=== PATIENT | female | born 1930 | race Caucasian/White ===

== ENCOUNTER 2018-01-04 08:47 | Outpatient (CLI) | payer MEDICARE ==
--- NOTE | 2018-01-04 11:53 | CT ---
CT ABDOMEN WITH AND WITHOUT IV CONTRAST CT PELVIS WITH AND WITHOUT IV COTNRAST: DATE: 01/04/2018. HISTORY: Right-sided abdominal pain and hematuria. History of bladder cancer as well as ovarian cancer. Hist ory of prior colon resection and hysterectomy. COMPARISON: 11/10/2008. FINDINGS: There is a mild pectus excavatum deformity. Mild left convex rotoscoliosis of the lumbar spine is no kirsty. There is bilateral hip osteoarthritis much greater on the right. Patchy parenchymal density is seen within the lateral aspect of the left lung base probably within th e anterior aspect of the left lower lobe. This could be related to atelectasis, although a focal are a of pneumonia is not excluded. There is mild herniation of fat at the posterior aspect of the left lung base. Small calcifications are seen in the gallbladder lumen consistent with gallbladder calculi. There is an approximately 1 cm fluid density lesion within the mid portion of the left kidney compati ble with a cyst. No additional renal lesion is seen. No renal or ureteral calculi are seen bilatera lly. There is no hydronephrosis. No enhancing renal mass is identified. The liver, spleen, pancreas, and bilateral adrenal glands demonstrate a normal CT appearance. The ur inary bladder is decompressed and not well evaluated, but on delayed images with contrast in the urin dada bladder, the urinary bladder demonstrates a grossly normal CT appearance. There are postsurgical changes related to partial colectomy with postsurgical changes related to the anastomosis within the mid pelvis. No enlarged lymph nodes are seen by CT size criteria. There is a tiny subcentimeter nodule seen post erior to the right hepatic lobe near the level of the hemidiaphragm which is nonspecific and may repr esent a tiny nonspecific lymph node. No free fluid or fluid collection is seen in the abdomen or pelvis. The uterus is not visualized related to prior hysterectomy. Vascular calcification is seen in the abdominal aorta and iliac arteries. IMPRESSION: 1. Patchy density in the anterior aspect left lower lobe which could be related to either atelectasi s or possibly pneumonitis. Clinical correlation recommended. 2. Cholelithiasis. 2. Left renal cyst. 3. No renal or ureteral calculi are seen, and there are no enhancing renal lesions seen bilaterally. 4. Postsurgical changes related to partial colectomy. 5. Hysterectomy. 6. Bilateral hip osteoarthritis with severe right hip osteoarthritis present. POS: [facility]
[2018-01-04] MEDS ORDERED: ISOVUE-370 76%-LOCM 1 ML ONE (15:12)
== END 2018-01-04 08:48 | disposition home or self-care (01) ==
LOC: BICCT 08:47
PROVIDERS: ATTEND Urology
DX: R31.9 Hematuria, unspecified (principal); K80.20 Calculus of gallbladder without cholecystitis without obstruction; N28.1 Cyst of kidney, acquired; M16.0 Bilateral primary osteoarthritis of hip; R91.8 Other nonspecific abnormal finding of lung field; Z90.49 Acquired absence of other specified parts of digestive tract; Z90.710 Acquired absence of both cervix and uterus
CPT/HCPCS: 74178

== ENCOUNTER 2018-03-14 13:16 | Inpatient (IN) | payer MEDICARE ==
[2018-03-14 13:57] LABS: Hemoglobin 11.1 g/dL (12.0-16.0); Mean Corpuscular HGB CONC 32.9 g/dL (32.0-36.0); Mean Corpuscular Hemoglobin 30.2 pg (27.0-31.0); Mean Corpuscular Volume 91.8 fL (78.0-98.0); Mean Platelet Volume 6.8 fL (7.4-10.4); Platelet Count 175 thou/uL (130-400); RBC Distribution Width 13.5 % (11.5-14.5); Red Blood Cell (RBC) Count 3.67 mill/uL (4.20-5.40); White Blood Cell (WBC) Count 20.9 thou/uL (4.8-10.8)
[2018-03-14 14:08] LABS: Bilirubin Moderate (Negative); Blood, Urine Moderate (Negative); Clarity CLEAR (Clear); Glucose, Urine (Dipstick) Negative (Negative); Leukocyte Trace (Negative); Nitrite Negative (Negative); Protein, Urine (Dipstick) 30 mg/dL (Neg-Trace); Specific Gravity, Urine 1.018 (1.002-1.036); pH, Urine 5.5 (5.0-9.0)
[2018-03-14 14:11] LABS: Bacteria/HPF None Seen HPF (None Seen); Pathc Cast-AUWi Flag 1.45 (0-2.49); Squamous Epithelial 0-3 HPF (0-3); WBC/HPF 0-3 HPF (0-3)
[2018-03-14 14:16] LABS: ALT (SGPT) 23 U/L (8-55); AST (SGOT) 44 U/L (5-34); Albumin 3.4 g/dL (3.4-4.8); Alkaline Phosphatase 139 U/L (40-150); Anion Gap 15 mmol/L (10-20); BUN (Urea Nitrogen) 11 mg/dL (9.8-20.1); Bilirubin, Total 3.2 mg/dL (0.2-1.2); Calc. Creatinine Clearance 0 mL/min (70-130); Calcium 8.6 mg/dL (7.8-10.44); Carbon Dioxide 26 mmol/L (23-31); Chloride 99 mmol/L (98-107); Estimated GFR-MDRD 70; Globulin 3.1 g/dL (2.4-3.5); Glucose 103 mg/dL (83-110); Potassium 3.2 mmol/L (3.5-5.1); Protein, Total 6.5 g/dL (6.0-8.3); Sodium 137 mmol/L (136-145)
[2018-03-14 14:19] LABS: Band 10 % (5-11); Differential Comment Immature Cell(s); Eosinophils 3 % (0-10); Lymphocytes 24 % (21-51); MDiff Complete? YES; Metamyelocyte 1 % (0-0); Monocytes 5 % (0-10); Myelocyte 2 % (0-0); Neutrophil 30 % (42-75); PLT Morphology Comment Appears Adequate; Polychromasia SLIGHT = 2-3 cells (100X) (0-2/hpf); Reactive Lymphocytes 2 % (0-10); Reflex for Review?? YES
[2018-03-14 14:25] LABS: Hyaline Casts/LPF 0-3 HYALINE CAST LPF (0-3 Hyaline)
--- NOTE | 2018-03-14 14:25 | RAD ---
SINGLE VIEW OF THE CHEST: COMPARISON: None. HISTORY: Weakness. History of bladder/ovarian cancer. FINDINGS: A single view of the chest shows an enlarged cardiomediastinal silhouette. Atelectasis is seen in th e left lung base. There is no evidence of consolidation or pleural effusion. IMPRESSION: Left basilar atelectasis. POS: [facility]
[2018-03-14] MEDS ORDERED: Potassium Chloride 20 MEQ TAB ONE (14:41)
[2018-03-14] MEDS ORDERED: Piperacillin/Tazobactam 3.375 GM VIAL ONE (14:41)
[2018-03-14] MEDS ORDERED: Sodium Chloride 0.9% 100 ML ONE (14:41)
[2018-03-14] MEDS ORDERED: Acetaminophen 325 MG TAB PO PRN (16:43)
[2018-03-14] MEDS ORDERED: Ondansetron PF 4 MG/2 ML Vial IVP PRN (16:43)
[2018-03-14] MEDS ORDERED: Ondansetron ODT 4 MG TAB SL PRN (16:43)
[2018-03-14 16:50] VITALS: BMI 20.8
[2018-03-14 17:11] LABS: INR-International Normal Ratio 1.3; PTT 35.1 SEC (22.9-36.1)
[2018-03-14 17:18] LABS: Fibrinogen 219 mg/dL (253-463)
[2018-03-14 17:24] LABS: FSP-Qualitative ABNORMAL (Normal); FSP-Semiquantitative >=5 & <20 mcg/mL (Less than 5)
[2018-03-14 17:25] LABS: Uric Acid 4.6 mg/dL (2.6-6.0)
[2018-03-14] MEDS: Sodium Chloride 0.9% 1,000 ML IV SCH (17:33)
[2018-03-14 18:11] LABS: Lactic Acid 1.6 mmol/L (0.5-2.2)
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
[2018-03-14] MEDS: Famotidine 20 MG TAB PO SCH (21:28)
[2018-03-14] MEDS: Piperacillin/Tazobactam 3.375 GM in Sodium Chloride 0.9% 100 ML IVPB SCH (21:28)
[2018-03-15] MEDS ORDERED: diphenhydrAMINE 25 MG CAP PO PRN ×2 (00:05→16:07)
[2018-03-15] MEDS: Sodium Chloride 0.9% 1,000 ML IV SCH ×5 (00:21→20:38)
[2018-03-15] MEDS: Piperacillin/Tazobactam 3.375 GM in Sodium Chloride 0.9% 100 ML IVPB SCH ×4 (03:54→20:37)
[2018-03-15] MEDS ORDERED: Ondansetron PF 4 MG/2 ML Vial IVP PRN (04:07)
[2018-03-15] MEDS ORDERED: Ondansetron ODT 4 MG TAB SL PRN (04:07)
[2018-03-15] MEDS: Acetaminophen 325 MG TAB PO PRN (04:29)
[2018-03-15] MEDS: Levothyroxine Sodium 100 MCG TAB PO SCH (05:45)
[2018-03-15 08:19] LABS: Anion Gap 9 mmol/L (10-20); BUN (Urea Nitrogen) 9 mg/dL (9.8-20.1); Calc. Creatinine Clearance 58 mL/min (70-130); Calcium 7.3 mg/dL (7.8-10.44); Carbon Dioxide 25 mmol/L (23-31); Chloride 106 mmol/L (98-107); Estimated GFR-MDRD 88; Glucose 82 mg/dL (83-110); Potassium 3.3 mmol/L (3.5-5.1); Sodium 137 mmol/L (136-145)
[2018-03-15] MEDS ORDERED: Vancomycin HCl 1 GM in Premix Bag 1 BAG IVPB SCH (08:45)
[2018-03-15] MEDS: Famotidine 20 MG TAB PO SCH ×2 (08:59→20:37)
[2018-03-15 09:13] LABS: Band 17 % (5-11); Eosinophils 2 % (0-10); Hemoglobin 8.8 g/dL (12.0-16.0); Lymphocytes 15 % (21-51); MDiff Complete? YES; Mean Corpuscular HGB CONC 32.4 g/dL (32.0-36.0); Mean Corpuscular Hemoglobin 29.9 pg (27.0-31.0); Mean Corpuscular Volume 92.4 fL (78.0-98.0); Mean Platelet Volume 6.9 fL (7.4-10.4); Metamyelocyte 1 % (0-0); Monocytes 8 % (0-10); Myelocyte 1 % (0-0); Neutrophil 55 % (42-75); PLT Morphology Comment Appears Adequate; Platelet Count 133 thou/uL (130-400); RBC Distribution Width 13.7 % (11.5-14.5); Reactive Lymphocytes 1 % (0-10); Red Blood Cell (RBC) Count 2.93 mill/uL (4.20-5.40); White Blood Cell (WBC) Count 12.7 thou/uL (4.8-10.8)
[2018-03-15] MEDS: Vancomycin HCl 750 MG in Sodium Chloride 0.9% 250 ML 250 ML IVPB SCH (10:57)
--- NOTE | 2018-03-15 16:06 | PDOC.PN ---
- Subjective Encounter Start Date: 03/15/18 Encounter Start Time: 08:00 Pt seen for followup re: sepsis. Denies chest pain, shortness of breath, fevers or chills. - Objective Resuscitation Status - Order Detail: 03/14/18 17:05 Resuscitation Status Routine Co-Sign Provider: Resuscitation Status: FULL: Full Resuscitation MAR Reviewed: Yes Vital Signs & Weight: Vital Signs (12 hours) Temp Pulse Pulse Resp BP BP Pulse Ox 03/15/18 10:30 84 122/65 03/15/18 08:50 95 03/15/18 07:43 98.5 F 85 18 133/57 L 95 Weight Admit Weight 129 lb 4.8 oz Weight 129 lb 4.8 oz I&O: 03/14/18 03/15/18 03/16/18 06:59 06:59 06:59 Intake Total 3210 Balance 3210 Result Diagrams: 03/15/18 07:12 03/15/18 07:12 Additional Labs: Labs reviewed by me Phys Exam - Physical Examination Constitutional: NAD HEENT: moist MMs, sclera anicteric, oral pharynx no lesions, 2+ tonsils Neck: no nodes, no JVD, supple, full ROM Respiratory: no wheezing, no rales, no rhonchi, clear to auscultation bilateral Cardiovascular: RRR, no rub S1, S2 Gastrointestinal: soft, non-tender, no distention, positive bowel sounds Neurological: moves all 4 limbs Psychiatric: normal affect, A&O x 3 Dx/Plan (1) Sepsis Code(s): A41.9 - SEPSIS, UNSPECIFIED ORGANISM Status: Acute Comment: etiology unclear, continue IV antibiotics as below (2) Bacteremia Code(s): R78.81 - BACTEREMIA Status: Acute Comment: ? contaminant, continue IV antibiotics (3) Hypothyroidism Code(s): E03.9 - HYPOTHYROIDISM, UNSPECIFIED Status: Acute Comment: continue synthroid - Plan * . Review of Systems - Review of Systems Constitutional: weakness. negative: fever, chills, sweats, malaise Respiratory: negative: Cough, Shortness of Breath, SOB with Excertion, Pleuritic Pain, Wheezing Cardiovascular: negative: chest pain, palpitations, orthopnea, paroxysmal nocturnal dyspnea, edema, light headedness Gastrointestinal: negative: Nausea, Vomiting, Abdominal Pain, Diarrhea, Constipation, Melena, Hematochezia Genitourinary: negative: Dysuria, Frequency, Incontinence, Hematuria, Retention Skin: negative: Rash, Lesions, Brandon, Bruising - Medications/Allergies Allergies/Adverse Reactions: Allergies Allergy/AdvReac Type Severity Reaction Status Date / Time No Known Drug Allergies Allergy Verified 03/14/18 16:42 Medications: Current Medications Acetaminophen (Tylenol) 650 mg PO Q4H PRN PRN Reason: Headache/Fever or Pain Last Admin: 03/15/18 04:29 Dose: 650 mg Diphenhydramine HCl (Benadryl) 25 mg PO HSPRN PRN PRN Reason: Itching & Insomnia Last Admin: 03/15/18 00:28 Dose: 25 mg Famotidine (Pepcid) 20 mg PO BID [facility] Last Admin: 03/15/18 08:59 Dose: 20 mg Piperacillin Sod/Tazobactam (Sod 3.375 gm/ Sodium Chloride) 100 mls @ 200 mls/ hr IVPB 0300,0900,1500,2100 [facility] Last Admin: 03/15/18 14:16 Dose: 100 mls Sodium Chloride (Normal Saline 0.9%) 1,000 mls @ 150 mls/hr IV .Q6H40M [facility] Last Admin: 03/15/18 08:58 Dose: 1,000 mls Vancomycin HCl 750 mg/ Sodium (Chloride) 250 mls @ 250 mls/hr IVPB Q24HR [facility] Last Admin: 03/15/18 10:57 Dose: 250 mls Levothyroxine Sodium (Synthroid) 100 mcg PO 0600 [facility] Last Admin: 03/15/18 05:45 Dose: 100 mcg Miscellaneous Medication (Pharmacy To Dose) 1 each IVPB ASDIR [facility] Ondansetron HCl (Zofran) 4 mg IVP Q4H PRN PRN Reason: Nausea/Vomiting Last Admin: 03/15/18 04:29 Dose: 4 mg Ondansetron HCl (Zofran Odt) 4 mg SL Q4H PRN PRN Reason: Nausea/Vomiting Sodium Chloride (Flush - Normal Saline) 10 ml IVF PRN PRN PRN Reason: Saline Flush
[2018-03-15] MEDS ORDERED: Potassium Chloride 20 MEQ TAB PO SCH (16:30)
--- NOTE | 2018-03-15 20:24 | CT ---
CT ABDOMEN AND PELVIS WITH AND WITHOUT IV CONTRAST: 03/15/2018 PROVIDED CLINICAL HISTORY: Abdominal pain. Elevated LDH and bilirubin. COMPARISON: 01/04/2018 FINDINGS: There are partially visualized bilateral pleural effusions with adjacent passive atelectasis. There is marked splenomegaly. The spleen measures approximately 18.9 cm in craniocaudal dimension an d about 14.2 x 5.5 cm in greatest transverse dimensions. There is a focal, wedge-shaped area of dimi nished attenuation involving the lateral aspect of the spleen, inferiorly, compatible with a splenic infarct. The liver demonstrates no evidence for mass or intrahepatic biliary ductal dilatation. The portal an d splenic veins appear patent. The splenic vein appears enlarged, though no collateral formation is demonstrated. The kidneys, pancreas, and adrenal glands appear unremarkable. There is no bowel dilatation apparent. There is mild simple appearing fluid present within the pelvi s, dependently. There is no evidence for free intraperitoneal air. There is no focal fat stranding apparent. Vascular calcifications are noted involving the abdominal aorta. Gallstones are seen without evidenc e for gallbladder distention. The osseous structures demonstrate no concerning lytic or blastic lesions. Prominent degenerative ch anges are seen involving each hip and lumbar spine. IMPRESSION: 1. 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 2. Bilateral pleural fluid with adjacent passive atelectasis. 3. Cholelithiasis. 4. Mild free intraperitoneal fluid, the etiology and significance of which are uncertain. POS: [facility]
--- NOTE | 2018-03-15 23:49 | CON ---
DATE OF CONSULTATION: REASON FOR CONSULTATION: Leukocytosis. HISTORY OF PRESENT ILLNESS: 87-year-old female with history of bladder cancer, status post TURBT and BCG in 2003 and ovarian cancer, status post resection and chemotherapy, and in remission since 2008, who follows with Dr. Osorio annually, presenting to the hospital yesterday with her daughter and family members for generalized weakness over the past week and worsening over the last couple of days. She states she was febrile with a fever of 101 at home along with night sweats and diarrhea. Upon arrival in the ED, she was found to be tachycardic and was started on broad-spectrum antibiotics. The patient states that before this she was walking up to 2 miles every day and was feeling pretty good at baseline. Since admission to the hospital, the patient and daughter state that she is doing much better and is currently afebrile. Since admission to the hospital, the patient's white blood cells were 20.9 and are currently 12.7. On the differential, she was found to have 1% metamyelocytes and 2% myelocytes. Her hemoglobin was 11.1 on admission and it is currently 8.8 with platelets of 175 that are currently 133. Chest x-ray showed some atelectasis, but it was otherwise normal and urinalysis showed trace leukocyte esterase with no bacteria seen. Labs also revealed a PT of 16.0, fibrinogen 219, and abnormal fibrin degradation products as well. The patient currently denies any other symptoms. REVIEW OF SYSTEMS: 10-point review of systems is negative except as per HPI. PAST MEDICAL HISTORY: Bladder cancer in 2003, ovarian cancer in 2009, hypothyroidism. PAST SURGICAL HISTORY: TURBT of bladder, colon resection, hysterectomy. SOCIAL HISTORY: No alcohol, drugs, or tobacco abuse. ALLERGIES: NO KNOWN DRUG ALLERGIES. CURRENT MEDICATIONS: Reviewed. PHYSICAL EXAMINATION: VITAL SIGNS: Temperature 100.2 this morning and currently 98.5, pulse 85 to 100, respirations 18, satting 95% on 2 L by nasal cannula, blood pressure 122/65. GENERAL: The patient is lying bed, in no acute distress. Appears comfortable. HEENT: Head is atraumatic and normocephalic. Extraocular muscles intact. No scleral icterus noted. RESPIRATION: Clear to auscultation bilaterally without wheezes, rales, or rhonchi. CARDIOVASCULAR: Normal S1 and S2 with regular rate and rhythm. ABDOMEN: Soft, nondistended, and minimally tender to palpation. MUSCULOSKELETAL: The patient moves all extremities. NEUROLOGIC: Cranial nerves 2 through 12 are grossly intact. SKIN: No rashes seen. PSYCHIATRIC: Awake, alert, and oriented x3 with appropriate mood and affect. LABORATORY DATA: White blood cell 20.9 on admission, currently 12.7; hemoglobin 11.1 on admission, currently 8.8; platelets 175 on admission, currently 133. On differential, neutrophils are currently 55%, band neutrophils 17%, lymphocytes 15%, metamyelocytes 1%, and myelocytes 2% on admission, currently 1%. PT 16, INR 1.3, PTT 35.1, fibrinogen 219, and elevated fibrin degradation products were seen. Sodium 137, potassium 3.3, BUN 9, creatinine 0.64, glucose 82. Lactic acid 2.2, down to 1.6. Uric acid 4.6, calcium 7.3, albumin of 3.4. Total bilirubin 3.2, AST 44, LDH 702. Urinalysis shows moderate bilirubin and trace leukocyte esterase with no bacteria seen and negative nitrites. IMAGING DATA: Chest x-ray dated March 14, 2018 shows left basilar atelectasis. ASSESSMENT AND PLAN: 87-year-old female with history of bladder cancer and ovarian cancer, presenting with weakness, fatigue, diarrhea, and fever along with night sweats and found to have leukocytosis and anemia. The patient was found to have metamyelocytes and myelocytes on differential and flow cytometry has been sent. Labs also show some mildly PT with low fibrinogen and elevated fibrin degradation products consistent with disseminated intravascular coagulation. The patient is currently on antibiotics. The patient's hemoglobin has dropped by 2.3 g since admission to the hospital, which is likely partial dilutional; however, there also may be bleeding or hemolysis as the patient does have an elevated bilirubin and LDH. We will follow flow cytometry and at this point, also recommend checking haptoglobin and Katerin along with a direct bilirubin. The patient had no evidence of lymphadenopathy on exam. We will follow this patient along with you. Thank you for this consult. Job ID: [id number]
[2018-03-16] MEDS: Acetaminophen 325 MG TAB PO PRN ×2 (00:37→16:30)
[2018-03-16] MEDS: Piperacillin/Tazobactam 3.375 GM in Sodium Chloride 0.9% 100 ML IVPB SCH ×4 (02:24→20:38)
[2018-03-16] MEDS: Sodium Chloride 0.9% 1,000 ML IV SCH ×4 (02:26→23:25)
[2018-03-16] MEDS: Levothyroxine Sodium 100 MCG TAB PO SCH (05:11)
[2018-03-16] MEDS: Famotidine 20 MG TAB PO SCH ×2 (08:22→20:38)
[2018-03-16] MEDS: Vancomycin HCl 750 MG in Sodium Chloride 0.9% 250 ML 250 ML IVPB SCH (09:03)
[2018-03-16 10:51] LABS: Hemoglobin 8.4 g/dL (12.0-16.0); Mean Corpuscular HGB CONC 30.8 g/dL (32.0-36.0); Mean Corpuscular Hemoglobin 28.6 pg (27.0-31.0); Mean Corpuscular Volume 92.7 fL (78.0-98.0); Mean Platelet Volume 6.8 fL (7.4-10.4); Platelet Count 120 thou/uL (130-400); RBC Distribution Width 13.8 % (11.5-14.5); Red Blood Cell (RBC) Count 2.93 mill/uL (4.20-5.40); White Blood Cell (WBC) Count 12.8 thou/uL (4.8-10.8)
[2018-03-16 11:13] LABS: Anion Gap 12 mmol/L (10-20); BUN (Urea Nitrogen) 8 mg/dL (9.8-20.1); Calc. Creatinine Clearance 57 mL/min (70-130); Calcium 7.2 mg/dL (7.8-10.44); Carbon Dioxide 18 mmol/L (23-31); Chloride 110 mmol/L (98-107); Estimated GFR-MDRD 85; Glucose 111 mg/dL (83-110); Potassium 3.9 mmol/L (3.5-5.1); Sodium 136 mmol/L (136-145)
--- NOTE | 2018-03-16 12:57 | EKG ---
Test Reason : Blood Pressure : / mmHG Vent. Rate : 101 BPM Atrial Rate : 101 BPM P-R Int : 182 ms QRS Dur : 106 ms QT Int : 330 ms P-R-T Axes : 054 -59 079 degrees QTc Int : 427 ms Sinus tachycardia Possible Left atrial enlargement Left anterior fascicular block Abnormal ECG Confirmed by STEPHANIE SARAVIA ([id number]), development editor RAGHU BAUGH ([id number] on 03/16/2018 12:56:43 PM Referred By: Confirmed By:STEPHANIE SARAVIA
[2018-03-16 13:58] LABS: Band 12 % (5-11); Blast 1 % (0-0); Differential Comment Immature Cell(s); Eosinophils 7 % (0-10); Lymphocytes 16 % (21-51); MDiff Complete? YES; Metamyelocyte 2 % (0-0); Monocytes 9 % (0-10); Myelocyte 1 % (0-0); Neutrophil 44 % (42-75); Ovalocytes SLIGHT = 2-5 cells (100X) (0-1/hpf); PLT Morphology Comment Appears Decreased; Polychromasia SLIGHT = 2-3 cells (100X) (0-2/hpf); Reactive Lymphocytes 1 % (0-10); Reflex for Review?? NO
--- NOTE | 2018-03-16 17:29 | PDOC.PN ---
- Subjective Encounter Start Date: 03/16/18 Encounter Start Time: 10:20 Pt seen for followup re: sepsis. Reports that she feels well. - Objective Resuscitation Status - Order Detail: 03/14/18 17:05 Resuscitation Status Routine Co-Sign Provider: Resuscitation Status: FULL: Full Resuscitation MAR Reviewed: Yes Vital Signs & Weight: Vital Signs (12 hours) Temp Pulse Resp BP Pulse Ox 03/16/18 16:25 103.0 F H 107 H 18 146/58 H 91 L 03/16/18 11:28 99.0 F 97 20 131/65 90 L 03/16/18 07:31 98.7 F 95 20 122/64 97 Weight Admit Weight 129 lb 4.8 oz Weight 129 lb 4.8 oz I&O: 03/15/18 03/16/18 03/17/18 06:59 06:59 06:59 Intake Total 3210 5250 Balance 3210 5250 Result Diagrams: 03/17/18 06:03 03/17/18 06:03 Additional Labs: Pt seen for followup re: sepsis. Denies fevers or chills. Unable to sleep well due to the bed. Phys Exam - Physical Examination Constitutional: NAD HEENT: moist MMs Neck: supple Respiratory: clear to auscultation bilateral Cardiovascular: RRR Gastrointestinal: soft Neurological: moves all 4 limbs Psychiatric: normal affect Dx/Plan (1) Sepsis Code(s): A41.9 - SEPSIS, UNSPECIFIED ORGANISM Status: Acute Comment: continue IV antibiotics as below, await cultures. (2) Bacteremia Code(s): R78.81 - BACTEREMIA Status: Acute Comment: ? contaminant (3) Hypothyroidism Code(s): E03.9 - HYPOTHYROIDISM, UNSPECIFIED Status: Acute Comment: on synthroid (4) Leucocytosis Code(s): D72.829 - ELEVATED WHITE BLOOD CELL COUNT, UNSPECIFIED Status: Acute Comment: concerning for blasts, await flow cytometry - Plan * . Review of Systems - Review of Systems Respiratory: negative: Cough, Dry, Shortness of Breath, Hemoptysis, SOB with Excertion, Pleuritic Pain, Sputum, Wheezing Cardiovascular: negative: chest pain, palpitations, orthopnea, paroxysmal nocturnal dyspnea, edema, light headedness - Medications/Allergies Allergies/Adverse Reactions: Allergies Allergy/AdvReac Type Severity Reaction Status Date / Time No Known Drug Allergies Allergy Verified 03/14/18 16:42 Medications: Current Medications Acetaminophen (Tylenol) 650 mg PO Q4H PRN PRN Reason: Headache/Fever or Pain Last Admin: 03/16/18 16:30 Dose: 650 mg Diphenhydramine HCl (Benadryl) 25 mg PO HSPRN PRN PRN Reason: Itching & Insomnia Last Admin: 03/15/18 00:28 Dose: 25 mg Diphenhydramine HCl (Benadryl) 25 mg PO HS PRN PRN Reason: Insomnia Famotidine (Pepcid) 20 mg PO BID [facility] Last Admin: 03/16/18 08:22 Dose: 20 mg Piperacillin Sod/Tazobactam (Sod 3.375 gm/ Sodium Chloride) 100 mls @ 200 mls/ hr IVPB 0300,0900,1500,2100 [facility] Last Admin: 03/16/18 13:55 Dose: 100 mls Sodium Chloride (Normal Saline 0.9%) 1,000 mls @ 150 mls/hr IV .Q6H40M [facility] Last Admin: 03/16/18 16:36 Dose: Not Given Vancomycin HCl 750 mg/ Sodium (Chloride) 250 mls @ 250 mls/hr IVPB Q24HR [facility] Last Admin: 03/16/18 09:03 Dose: 250 mls Levothyroxine Sodium (Synthroid) 100 mcg PO 0600 [facility] Last Admin: 03/16/18 05:11 Dose: 100 mcg Miscellaneous Medication (Pharmacy To Dose) 1 each IVPB ASDIR [facility] Ondansetron HCl (Zofran) 4 mg IVP Q4H PRN PRN Reason: Nausea/Vomiting Last Admin: 03/15/18 04:29 Dose: 4 mg Ondansetron HCl (Zofran Odt) 4 mg SL Q4H PRN PRN Reason: Nausea/Vomiting Sodium Chloride (Flush - Normal Saline) 10 ml IVF PRN PRN PRN Reason: Saline Flush
[2018-03-17] MEDS: Piperacillin/Tazobactam 3.375 GM in Sodium Chloride 0.9% 100 ML IVPB SCH ×4 (03:15→20:08)
[2018-03-17] MEDS: Levothyroxine Sodium 100 MCG TAB PO SCH (05:55)
[2018-03-17 06:43] LABS: Anion Gap 10 mmol/L (10-20); BUN (Urea Nitrogen) 10 mg/dL (9.8-20.1); Calc. Creatinine Clearance 54 mL/min (70-130); Calcium 7.4 mg/dL (7.8-10.44); Carbon Dioxide 22 mmol/L (23-31); Chloride 109 mmol/L (98-107); Estimated GFR-MDRD 81; Glucose 108 mg/dL (83-110); Sodium 137 mmol/L (136-145)
[2018-03-17 06:45] LABS: Hemoglobin 8.6 g/dL (12.0-16.0); Mean Corpuscular HGB CONC 32.4 g/dL (32.0-36.0); Mean Corpuscular Hemoglobin 30.4 pg (27.0-31.0); Mean Platelet Volume 7.1 fL (7.4-10.4); Platelet Count 111 thou/uL (130-400); RBC Distribution Width 14.2 % (11.5-14.5); Red Blood Cell (RBC) Count 2.81 mill/uL (4.20-5.40); White Blood Cell (WBC) Count 12.2 thou/uL (4.8-10.8)
[2018-03-17] MEDS: Famotidine 20 MG TAB PO SCH ×2 (07:03→20:10)
[2018-03-17 07:42] LABS: Band 26 % (5-11); Lymphocytes 29 % (21-51); MDiff Complete? YES; Metamyelocyte 2 % (0-0); Monocytes 8 % (0-10); Myelocyte 4 % (0-0); Neutrophil 30 % (42-75); PLT Morphology Comment Appears Decreased; Polychromasia SLIGHT = 2-3 cells (100X) (0-2/hpf)
[2018-03-17] MEDS: Sodium Chloride 0.9% 1,000 ML IV SCH ×2 (08:02→15:13)
[2018-03-17 10:15] LABS: Vancomycin, Trough 4.1 ug/mL
[2018-03-17] MEDS: Vancomycin HCl 750 MG in Sodium Chloride 0.9% 250 ML 250 ML IVPB SCH (10:41)
[2018-03-17] MEDS: Vancomycin HCl 1 GM in Premix Bag 1 BAG IVPB SCH ×2 (12:04→22:20)
--- NOTE | 2018-03-17 13:29 | PDOC.PN ---
- Subjective Encounter Start Date: 03/17/18 Encounter Start Time: 09:00 Pt seen for followup re: sepsis. Denies fevers or chills. - Objective Resuscitation Status - Order Detail: 03/14/18 17:05 Resuscitation Status Routine Co-Sign Provider: Resuscitation Status: FULL: Full Resuscitation MAR Reviewed: Yes Vital Signs & Weight: Vital Signs (12 hours) Temp Pulse Resp BP Pulse Ox 03/17/18 10:54 94 L 03/17/18 08:10 94 L 03/17/18 07:32 98.0 F 100 18 146/69 H 96 03/17/18 03:00 98.9 F 90 16 117/70 94 L Weight Admit Weight 129 lb 4.8 oz Weight 129 lb 4.8 oz I&O: 03/16/18 03/17/18 03/18/18 06:59 06:59 06:59 Intake Total 5250 2200 Balance 5250 2200 Result Diagrams: 03/17/18 06:03 03/17/18 06:03 Additional Labs: labs reviewed by me Phys Exam - Physical Examination Constitutional: NAD HEENT: moist MMs Neck: supple Respiratory: clear to auscultation bilateral Cardiovascular: RRR Gastrointestinal: soft Neurological: moves all 4 limbs Psychiatric: normal affect Dx/Plan (1) Sepsis Code(s): A41.9 - SEPSIS, UNSPECIFIED ORGANISM Status: Acute Comment: continue IV antibiotics as below (2) Bacteremia Code(s): R78.81 - BACTEREMIA Status: Acute Comment: probable contaminant (3) Hypothyroidism Code(s): E03.9 - HYPOTHYROIDISM, UNSPECIFIED Status: Acute Comment: continue synthroid (4) Leucocytosis Code(s): D72.829 - ELEVATED WHITE BLOOD CELL COUNT, UNSPECIFIED Status: Acute Comment: lymphoma vs leukemia - Plan * . Review of Systems - Review of Systems Cardiovascular: negative: chest pain, palpitations, orthopnea, paroxysmal nocturnal dyspnea, edema, light headedness Gastrointestinal: negative: Nausea, Vomiting, Abdominal Pain, Diarrhea, Constipation, Melena, Hematochezia - Medications/Allergies Allergies/Adverse Reactions: Allergies Allergy/AdvReac Type Severity Reaction Status Date / Time No Known Drug Allergies Allergy Verified 03/14/18 16:42 Medications: Current Medications Acetaminophen (Tylenol) 650 mg PO Q4H PRN PRN Reason: Headache/Fever or Pain Last Admin: 03/16/18 16:30 Dose: 650 mg Diphenhydramine HCl (Benadryl) 25 mg PO HSPRN PRN PRN Reason: Itching & Insomnia Last Admin: 03/15/18 00:28 Dose: 25 mg Diphenhydramine HCl (Benadryl) 25 mg PO HS PRN PRN Reason: Insomnia Famotidine (Pepcid) 20 mg PO BID [facility] Last Admin: 03/17/18 07:03 Dose: Not Given Piperacillin Sod/Tazobactam (Sod 3.375 gm/ Sodium Chloride) 100 mls @ 200 mls/ hr IVPB 0300,0900,1500,2100 [facility] Last Admin: 03/17/18 08:02 Dose: 100 mls Sodium Chloride (Normal Saline 0.9%) 1,000 mls @ 150 mls/hr IV .Q6H40M [facility] Last Admin: 03/17/18 08:02 Dose: 1,000 mls Vancomycin HCl 1 gm/ Device 200 mls @ 200 mls/hr IVPB 1100,2300 [facility] Last Admin: 03/17/18 12:04 Dose: 200 mls Levothyroxine Sodium (Synthroid) 100 mcg PO 0600 [facility] Last Admin: 03/17/18 05:55 Dose: 100 mcg Miscellaneous Medication (Pharmacy To Dose) 1 each IVPB ASDIR [facility] Ondansetron HCl (Zofran) 4 mg IVP Q4H PRN PRN Reason: Nausea/Vomiting Last Admin: 03/15/18 04:29 Dose: 4 mg Ondansetron HCl (Zofran Odt) 4 mg SL Q4H PRN PRN Reason: Nausea/Vomiting Sodium Chloride (Flush - Normal Saline) 10 ml IVF PRN PRN PRN Reason: Saline Flush
[2018-03-17] MEDS: Acetaminophen 325 MG TAB PO PRN (16:39)
[2018-03-18] MEDS: Piperacillin/Tazobactam 3.375 GM in Sodium Chloride 0.9% 100 ML IVPB SCH ×2 (03:39→08:15)
[2018-03-18] MEDS: Levothyroxine Sodium 100 MCG TAB PO SCH (05:35)
[2018-03-18] MEDS: Famotidine 20 MG TAB PO SCH ×3 (08:24→21:12)
[2018-03-18] MEDS ORDERED: Sodium Bicarbonate 2.5 MEQ/5 ML VIAL ONE (09:45)
[2018-03-18] MEDS ORDERED: Midazolam HCl 2 mg/2 ml Vial ONE (09:45)
[2018-03-18] MEDS ORDERED: Fentanyl 100 MCG/2 ML VIAL ONE (09:45)
--- NOTE | 2018-03-18 13:13 | PDOC.PN ---
- Subjective Encounter Start Date: 03/18/18 Encounter Start Time: 09:00 Pt seen for followup re: sepsis. feels better. Does not want IV antibiotics. - Objective Resuscitation Status - Order Detail: 03/14/18 17:05 Resuscitation Status Routine Co-Sign Provider: Resuscitation Status: FULL: Full Resuscitation MAR Reviewed: Yes Vital Signs & Weight: Vital Signs (12 hours) Temp Pulse Resp BP Pulse Ox 03/18/18 11:41 97.8 F 107 H 18 148/75 H 91 L 03/18/18 08:00 94 L 03/18/18 07:34 99.0 F 109 H 18 165/74 H 94 L 03/18/18 03:00 99.6 F 101 H 16 149/66 H 99 Weight Admit Weight 129 lb 4.8 oz Weight 129 lb 4.8 oz I&O: 03/17/18 03/18/18 03/19/18 06:59 06:59 06:59 Intake Total 2200 Balance 2200 Result Diagrams: 03/17/18 06:03 03/17/18 06:03 Additional Labs: Labs reviewed by me Phys Exam - Physical Examination Constitutional: NAD HEENT: moist MMs Neck: supple Respiratory: clear to auscultation bilateral Cardiovascular: RRR Gastrointestinal: soft Neurological: moves all 4 limbs Psychiatric: normal affect Dx/Plan (1) Sepsis Code(s): A41.9 - SEPSIS, UNSPECIFIED ORGANISM Status: Acute Comment: switch antibiotic to levofloxacin. Unclear whether symptoms are secondary to infection or hematologic malignancy. (2) Hypothyroidism Code(s): E03.9 - HYPOTHYROIDISM, UNSPECIFIED Status: Acute Comment: continue synthroid (3) Leucocytosis Code(s): D72.829 - ELEVATED WHITE BLOOD CELL COUNT, UNSPECIFIED Status: Acute Comment: lymphoma vs leukemia, bone marrow biopsy today. (4) Bacteremia Code(s): R78.81 - BACTEREMIA Status: Ruled-out Comment: probable contaminant - Plan * . Review of Systems - Review of Systems Respiratory: negative: Cough, Shortness of Breath, SOB with Excertion, Pleuritic Pain, Wheezing Cardiovascular: negative: chest pain, palpitations, orthopnea, paroxysmal nocturnal dyspnea, edema, light headedness - Medications/Allergies Allergies/Adverse Reactions: Allergies Allergy/AdvReac Type Severity Reaction Status Date / Time No Known Drug Allergies Allergy Verified 03/14/18 16:42 Medications: Current Medications Acetaminophen (Tylenol) 650 mg PO Q4H PRN PRN Reason: Headache/Fever or Pain Last Admin: 03/17/18 16:39 Dose: 650 mg Diphenhydramine HCl (Benadryl) 25 mg PO HSPRN PRN PRN Reason: Itching & Insomnia Last Admin: 03/15/18 00:28 Dose: 25 mg Diphenhydramine HCl (Benadryl) 25 mg PO HS PRN PRN Reason: Insomnia Famotidine (Pepcid) 20 mg PO BID [facility] Last Admin: 03/18/18 11:19 Dose: 20 mg Levofloxacin (Levaquin) 750 mg PO Q24HR@1000 [facility] Last Admin: 03/18/18 11:19 Dose: 750 mg Levothyroxine Sodium (Synthroid) 100 mcg PO 0600 [facility] Last Admin: 03/18/18 05:35 Dose: Not Given Ondansetron HCl (Zofran) 4 mg IVP Q4H PRN PRN Reason: Nausea/Vomiting Last Admin: 03/15/18 04:29 Dose: 4 mg Sodium Chloride (Flush - Normal Saline) 10 ml IVF PRN PRN PRN Reason: Saline Flush
--- NOTE | 2018-03-18 13:26 | CT ---
CT GUIDED BONE MARROW BIOPSY: HISTORY: Bone marrow aspiration. Abnormal lab values. COMPARISON: CT abdomen and pelvis from 03/15/2018. FINDINGS: The patient was brought to the CT suite. All questions were answered. The patient's lower back was prepped and draped in the normal sterile fashion. Informed consent was obtained. A time out was performed. Using CT guidance, the right iliac bone was accessed, using a 10 gauge drill. A total of 11 mL of doris ne marrow aspirate was taken and given to the tomography technologist. A 2 cm core was obtained. The patient tolerated the procedure well, without complication. Before the procedure, 0.5 mg of Versed and 25 mcg of fentanyl was administered intravenously by the s upervising nurse. IMPRESSION: Technically successful CT guided bone marrow biopsy. TOTAL SEDATION TIME: 30 minutes. POS: [facility]
[2018-03-19] MEDS: Levothyroxine Sodium 100 MCG TAB PO SCH (05:21)
[2018-03-19] MEDS: Famotidine 20 MG TAB PO SCH (08:12)
[2018-03-19 16:15] VITALS: BP 160/69; TEMP 97.8
--- NOTE | 2018-03-20 08:31 | DIS ---
DATE OF ADMISSION: 03/14/2018 DATE OF DISCHARGE: 03/19/2018 PRIMARY CARE PROVIDER: Roberto Sands MD DISCHARGE DIAGNOSES: 1. Sepsis. 2. 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 CONDITION: Condition of the patient on the day of discharge: Stable. I assessed Ms. Chacon on the day of discharge. She denies any chest pain or shortness of breath. Vital signs are stable. S1 and S2 are heard, regular. Lungs are clear to auscultation bilaterally. DISCHARGE MEDICATIONS: 1. Levofloxacin 500 mg daily for 10 days. 2. Levothyroxine 100 mcg daily. 3. Benadryl 25 mg at bedtime as needed. CONSULTATIONS DURING THIS HOSPITALIZATION: Oncology, Dr. Edd Gilbert. HOSPITAL COURSE: Ms. Chacon is a pleasant 87-year-old lady, who was admitted to [facility] on March 14, 2018, for sepsis as well as several hematologic abnormalities. Please refer to Mr. Bliss's history and physical note dated March 14, 2018, for further details. She was initially treated with broad-spectrum intravenous antibiotics and switched over to oral levofloxacin. At the time of this dictation, 1/2 blood cultures is positive for coagulase-negative Staphylococcus, most likely contaminant. She is advised to follow up with her primary care provider for final blood cultures on the other sample. She also had a negative urine culture. She continued to improve clinically. She was seen by Oncology Service because flow cytometry suggested mantle cell lymphoma versus atypical chronic lymphocytic leukemia. She had bone marrow biopsy on March 18, 2018. She will follow up with Oncology Clinic as outpatient. 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 Many thanks for allowing me to participate in your patient's care. Please feel free to contact me with any questions or concerns. DISCHARGE DESTINATION: Home. TOTAL AMOUNT OF TIME SPENT IN COORDINATING THIS DISCHARGE: 32 minutes. Job ID: [id number]
== END 2018-03-19 16:30 | disposition home or self-care (01) | DRG 854 ==
LOC: ERS 13:16 → T4-A 14:54
PROVIDERS: ADMIT Internal Medicine Infectious Disease; ATTEND Internal Medicine Infectious Disease
PROC: 0QB23ZX Excision of Right Pelvic Bone, Percutaneous Approach, Diagnostic (ICD-10-PCS; principal; 2018-03-18)
DX: A41.9 Sepsis, unspecified organism (principal); C83.10 Mantle cell lymphoma, unspecified site; C91.Z0 Other lymphoid leukemia not having achieved remission; E03.9 Hypothyroidism, unspecified; Z85.51 Personal history of malignant neoplasm of bladder; Z85.43 Personal history of malignant neoplasm of ovary; D64.9 Anemia, unspecified
CPT/HCPCS: 20225; 36415; 51701; 71045; 74178; 77012; 80048; 80053; 80202; 81003; 81015; 82248; 82274; 83010; 83605; 83615; 84484; 84550; 85025; 85060; 85097; 85362; 85384; 85610; 85730; 86880; 87040; 87086; 87149; 87324; 87449; 88184; 88237; 88264; 88280; 88305; 88311; 88313; 88341; 88342; 93005; 96361; 96365; A4353; G8978-GP-CH; G8979-GP-CH; G8980-GP-CH; G8987-GO-CH; G8988-GO-CH; G8989-GO-CH; J2250; J2405; J2543; J3010; J3370; J7050

== ENCOUNTER 2018-03-20 17:04 | Inpatient (IN) | payer MEDICARE ==
[2018-03-20 18:21] LABS: Hemoglobin 8.6 g/dL (12.0-16.0); Mean Corpuscular HGB CONC 31.9 g/dL (32.0-36.0); Mean Corpuscular Hemoglobin 29.8 pg (27.0-31.0); Mean Corpuscular Volume 93.4 fL (78.0-98.0); Platelet Count 109 thou/uL (130-400); RBC Distribution Width 14.5 % (11.5-14.5); Red Blood Cell (RBC) Count 2.88 mill/uL (4.20-5.40); White Blood Cell (WBC) Count 32.9 thou/uL (4.8-10.8)
[2018-03-20 18:39] LABS: ALT (SGPT) 24 U/L (8-55); AST (SGOT) 50 U/L (5-34); Albumin 2.5 g/dL (3.4-4.8); Alkaline Phosphatase 110 U/L (40-150); Anion Gap 13 mmol/L (10-20); BUN (Urea Nitrogen) 17 mg/dL (9.8-20.1); Bilirubin, Total 1.4 mg/dL (0.2-1.2); Calc. Creatinine Clearance 0 mL/min (70-130); Calcium 8.3 mg/dL (7.8-10.44); Carbon Dioxide 23 mmol/L (23-31); Chloride 107 mmol/L (98-107); Estimated GFR-MDRD 83; Globulin 2.6 g/dL (2.4-3.5); Glucose 114 mg/dL (83-110); Potassium 3.7 mmol/L (3.5-5.1); Protein, Total 5.1 g/dL (6.0-8.3); Sodium 139 mmol/L (136-145)
[2018-03-20 18:46] LABS: Anisocytosis SLIGHT = 6-15 cells (100X) (0-5/hpf); Band 16 % (5-11); Elliptocytes SLIGHT = 2-5 cells (100X) (0-1/hpf); Lymphocytes 14 % (21-51); MDiff Complete? YES; Metamyelocyte 3 % (0-0); Monocytes 4 % (0-10); Myelocyte 1 % (0-0); Neutrophil 62 % (42-75); PLT Morphology Comment Appears Decreased; Poikilocytosis SLIGHT = 6-15 cells (100X) (0-5/hpf); Polychromasia SLIGHT = 2-3 cells (100X) (0-2/hpf); Tear Drops SLIGHT = 2-5 cells (100X) (0-1/hpf)
[2018-03-20 20:42] LABS: Bilirubin Small (Negative); Blood, Urine Negative (Negative); Clarity CLEAR (Clear); Glucose, Urine (Dipstick) Negative (Negative); Leukocyte Negative (Negative); Nitrite Negative (Negative); Protein, Urine (Dipstick) 30 mg/dL (Neg-Trace); Specific Gravity, Urine 1.023 (1.002-1.036); Urobilinogen 0.2 mg/dL (0.2-1.0)
[2018-03-20 20:45] LABS: Bacteria/HPF None Seen HPF (None Seen); Hyaline Casts/LPF 7-10 HYALINE CAST LPF (0-3 Hyaline); Pathc Cast-AUWi Flag 0.87 (0-2.49); Squamous Epithelial 0-3 HPF (0-3); WBC/HPF 0-3 HPF (0-3)
--- NOTE | 2018-03-20 22:10 | CT ---
CT OF ABDOMEN AND PELVIS PERFORMED WITH INTRAVENOUS CONTRAST ENHANCEMENT: 03/20/18 HISTORY: Patient complaining of bone biopsy site drainage of clear fluid. Discharged from hospital two days ag o with diagnosis of sepsis. COMPARISON: CT abdomen and pelvis dated 03/15/[address] directed bone biopsy done 03/18/18. There are large bilateral pleural effusions with associated bibasilar atelectatic lung change. The liver is normal in appearance. There is marked splenomegaly again noted. Spleen measuring 17.6 cm in length. A splenic infarct is present. The pancreas region is unremarkable. Gallstones are noted. Right and left adrenal glands and right and left kidneys are normal in size. There is no significant periaortic adenopathy. Small nonspecific subcentimeter nodes are present. No significant mesenteric a denopathy. Ascites is noted mainly around the liver, but in the pericolic gutters. CT OF PELVIS PERFORMED WITH INTRAVENOUS CONTRAST ENHANCEMENT: Mild amount of ascites is noted. This is increased slightly as compared to the prior exam. The previo us biopsy was done of the right iliac bone near the right SI joint. I actually cannot even definitive ly visualize any defect related to this and I do not see any type of fluid collection within the soft tissues. There is no signs of any hematoma identified. Patient has some mild anasarca with edema rubia nge of the subcutaneous fat along the lateral aspect of the abdominal wall even into the thigh region . IMPRESSION: 1. Mild ascites, slightly increased as compared to the prior exam. 2. Large bilateral pleural effusions with bibasilar atelectasis. 3. Splenomegaly with splenic infarct again noted. 4. Gallstones. 5. I do not visualize any definitive signs of any complication related to the bone biopsy. POS: [facility]
[2018-03-20 23:00] VITALS: BMI 23.1
[2018-03-21] MEDS ORDERED: Ondansetron PF 4 MG/2 ML Vial IVP PRN (00:02)
[2018-03-21] MEDS ORDERED: Ondansetron ODT 4 MG TAB SL PRN (00:02)
[2018-03-21] MEDS ORDERED: Acetaminophen 325 MG TAB PO PRN (00:02)
[2018-03-21] MEDS: Sodium Chloride 0.9% 1,000 ML IV SCH ×3 (03:51→14:48)
[2018-03-21] MEDS: Vancomycin HCl 1 GM in Premix Bag 1 BAG IVPB SCH (09:00)
[2018-03-21] MEDS ORDERED: Levothyroxine Sodium 100 MCG TAB PO SCH (09:00)
[2018-03-21] MEDS: Levothyroxine Sodium 100 MCG TAB PO SCH (09:01)
--- NOTE | 2018-03-21 09:54 | PDOC.EVN ---
Event Note - Event Note Event Note: Will DC CT scan of lumbar spine, case d/w radiologist, biopsy site doesn't show any tracts of infection or abscess. For now will start abx, await cultures and follow labs in AM. Wound care for LLE, oncology consult pending. No other changes in plan of care. H&P dictated and transcript pending.
--- NOTE | 2018-03-21 11:43 | HP ---
CHIEF COMPLAINT: Leakage from her bone marrow biopsy site. HISTORY OF PRESENT ILLNESS: This is an 87-year-old female, who is recently admitted to the hospital and discharged on March 19 for back pain as well as having a bone marrow biopsy done. The patient currently presenting with leakage at the site of the biopsy. Biopsy was done approximately 3 days ago on March 18. The patient states that she went home day before yesterday and was noted to have a leakage coming from the site requiring multiple Band-Aid exchanges as well as gauze exchanges. Family states that they contacted her outpatient oncologist, Dr. Osorio, who stated put pressure on the area side and see if the leaking resolved. Postbiopsy, the patient was on her back for a period of greater than 6 hours and did not move immediately. The patient states that she has not had any pain in the area nor have daughters noted the swelling or redness. Note that the leakage is clear and that there is no pus like material. Denies any fevers or chills at home. The patient also denies any loss of sensation or motor function in her lower extremities. The patient does admit to swelling in the left lower extremity at the anterior region, stating that there was an abrasion that suddenly came on. Denies any trauma. Denies any scratching or anything along those lines. Notes that it formed a little boil, which started to leak as well. The patient notes that she was told by her oncologist to wait for about 24 hours to see if her leaking resolved with pressure and if this is not occurred, then to go to the ER. The patient then presented to the ER as there was no resolution of her leaking from the bone marrow biopsy site. The patient was being evaluated in the hospital bed, currently both daughters at bedside. History provided from both daughters, the patient, as well as chart review. At this point in time, the patient states that she feels comfortable, is able to walk and move around, albeit she does have bilateral lower extremity swelling left worse than the right. The patient otherwise denies any nausea, vomiting, diarrhea, constipation, chest pain, fevers, chills, or shortness of breath. The patient seen and examined in the hospital bed. Family at bedside. All questions answered. REVIEW OF SYSTEMS: All systems reviewed, pertinent positives in the HPI, otherwise negative. HOME MEDICATIONS: 1. Benadryl. 2. Levaquin. 3. Levothyroxine. PAST MEDICAL HISTORY: Positive for hypothyroidism, hypertension, bladder cancer in 2003 treated with chemo, ovarian cancer in 2009 successfully treated with chemo, and chronic anemia. PAST SURGICAL HISTORY: Bladder cancer surgery, colon resection, and hysterectomy. SOCIAL HISTORY: Denies any alcohol or drinking and lives alone by herself. PHYSICAL EXAMINATION: VITAL SIGNS: Blood pressure 151/71, respiratory rate of 18, temperature of 98.2, and heart rate of 98. GENERAL: No acute distress. Lying in bed. HEENT: NC/AT. PERRLA. Extraocular muscles intact. Oral cavity moist and pink. LUNGS: Clear to auscultation bilaterally. No respiratory distress. CARDIOVASCULAR: Regular rate and rhythm. S1 and S2. No murmurs, rubs, or gallops appreciated. ABDOMEN: Positive bowel sounds. Soft and nontender. EXTREMITIES: 2+ peripheral pulses noted. Trace edema in bilateral lower extremities. Left lower extremity in wrap, fresh bandages. NEUROLOGIC: Cranial nerves 2 through 12 intact. No loss of sensory or function. The patient answering all questions appropriately. Alert and oriented x3. SKIN: Normal turgor. Lumbar site, right side in her back shows a clear dressing, recently replaced by nurse. No erythema noted around the area. No pus noted around the area. LABORATORY DATA: CBC; WBC count at 33, hemoglobin at 8.9, bands at 16, neutrophils at 62. Basic metabolic panel is normal except for albumin 2.5 and glucose of 114. Urinalysis within normal limits. ASSESSMENT AND PLAN: 1. Back pain. 2. Possible sepsis, site of infection being her bone marrow biopsy site. 3. Hematologic malignancy. 4. Hypothyroidism. 5. Hypertension. At this point in time given the high white count and a history of 1/2 positive coagulase-negative Staph on blood cultures, we will start the patient on vancomycin and cefepime, we will also obtain a CT scan of lumbar spine to evaluate for any possible subdermal infection or infectious track. Unable to get an MRI as the patient has metal in her body in her arms as rods and pins. Consult placed to Oncology. We will obtain Infectious Disease evaluation if the patient's condition worsens in light of rising white count of fevers or positive cultures. At this point in time, we will await for results prior to consulting ID. Code status discussed. The patient wishes to remain in full code for now; however, she does state that if her conditions worsen, she will consider making her DNR/DNI. GI and DVT prophylaxis. Case and plan discussed with the patient and both daughters at length. They understand and agreed with this plan. Job ID: [id number]
[2018-03-21] MEDS: Cefepime 1 GM in Sodium Chloride 0.9% 100 ML IVPB SCH ×2 (11:56→20:43)
[2018-03-21] MEDS ORDERED: Furosemide 20 MG TAB PO SCH (13:30)
--- NOTE | 2018-03-21 17:13 | CON ---
DATE OF CONSULTATION: REASON FOR CONSULTATION: Leukocytosis. HISTORY OF PRESENT ILLNESS: Ms. Chacon is a pleasant 87-year-old female, who is discharged from this facility 3 days ago after she was admitted for sepsis and leukocytosis. During that hospitalization, she was noted to have metamyelocytes and myelocytes on her peripheral smear. A flow cytometry of the serum showed a CD5 positive B-cell lymphoproliferative disorder such as mantle cell lymphoma or chronic lymphocytic leukemia. She then underwent a bone marrow biopsy to her right iliac crest, results are currently pending. She received antibiotics and IV fluids for sepsis. Her white count improved to 12. She was discharged in stable condition. Yesterday, she began to have clear drainage from her bone marrow biopsy site. Pressure was held with no resolution. She was sent to the emergency room for further evaluation. A CT scan of the abdomen and pelvis showed no evidence of infection. She did have bilateral pleural effusions with mild ascites. She has known splenomegaly. Her white count was 32.9. In the emergency room, her drainage was cultured. She was started on empiric antibiotics and admitted for observation. The patient has no complaints of pain or fever. Her only complaint is fluid retention. She has bilateral lower extremity edema and abdominal bloating. Denies shortness of breath or chest pain. PAST MEDICAL HISTORY: 1. Newly diagnosed B-cell lymphoproliferative disorder, bone marrow biopsy results pending. 2. History of bladder cancer. 3. History of ovarian cancer. 4. Hypothyroidism. PAST SURGICAL HISTORY: 1. TURBT of bladder. 2. Colon resection. 3. Hysterectomy. ALLERGIES: NO KNOWN DRUG ALLERGIES. HOME MEDICATIONS: 1. Benadryl p.r.n. insomnia. 2. Levothyroxine 100 mcg daily. 3. Levaquin 500 mg daily. SOCIAL HISTORY: . Lives with her daughter. No alcohol, tobacco, or illicit drug use. FAMILY HISTORY: Noncontributory. REVIEW OF SYSTEMS: A 10-point review of systems is negative except as noted in the HPI. PHYSICAL EXAMINATION: VITAL SIGNS: Temperature is 98.5, pulse is 89, respiratory rate 18, blood pressure is 151/70, and she is 94% on room air. GENERAL: Well-developed, well-nourished female, in no acute distress. HEENT: Normocephalic and atraumatic. Pupils equal and reactive to light. NECK: Supple. There is an IV in her left EJ. LUNGS: Crackling at the bases posterior. CV: Regular rate and rhythm. ABDOMEN: Mildly distended. Bowel sounds are positive. EXTREMITIES: 1 to 2+ bilateral lower extremity edema. SKIN: Bruising with serous drainage noted from her right iliac crest. HEMATOLOGIC: No petechiae or purpura. NEUROLOGIC: Nonfocal. PSYCHIATRIC: The patient is alert, oriented, and appropriate. LABORATORY DATA: Pertinent labs and x-rays: Current WBCs 32.9, hemoglobin 8.6, hematocrit 26.9, and platelet counts are 109,000. She has 62% neutrophils, 16% bands, 14% lymphocytes. Sodium is 139, potassium 3.7, chloride 107, CO2 is 23, BUN 17, creatinine is 0.67, glucose 114, calcium 8.3. Total bilirubin 1.4, AST is 50, ALT is 24, alkaline phosphatase is 110. Serum total protein is 5.1, albumin 2.5, and globulin 2.6. Urine is negative for bacteria. Radiology per HPI. ASSESSMENT: 1. Drainage from her bone marrow biopsy site. 2. Newly diagnosed B-cell lymphoproliferative disorder. 3. Leukocytosis. 4. Recent sepsis. 5. Fluid overload with anasarca. 6. Bilateral pleural effusions. DISCUSSION: The patient has been cultured. Preliminary results are negative for infection. She is on empiric antibiotics, which I would continue. Her bone marrow site continues to drain. Wound Care has been asked to address the side as well as a draining wound on her left lower extremity. Add Lasix x1 to see if we can improve her fluid overload, which is likely the contributing factor to the drainage from the bone marrow biopsy site. Thank you for the consult. We will follow her labs closely. Job ID: [id number]
[2018-03-21] MEDS: diphenhydrAMINE 25 MG CAP PO PRN (20:49)
[2018-03-22] MEDS: Sodium Chloride 0.9% 1,000 ML IV SCH ×3 (03:35→17:53)
[2018-03-22 06:48] LABS: Anion Gap 13 mmol/L (10-20); BUN (Urea Nitrogen) 8 mg/dL (9.8-20.1); Calc. Creatinine Clearance 68 mL/min (70-130); Calcium 7.6 mg/dL (7.8-10.44); Carbon Dioxide 28 mmol/L (23-31); Chloride 100 mmol/L (98-107); Estimated GFR-MDRD Greater than 90; Glucose 88 mg/dL (83-110); Sodium 138 mmol/L (136-145)
[2018-03-22 06:56] LABS: Potassium 2.9 mmol/L (3.5-5.1)
[2018-03-22] MEDS ORDERED: Potassium Chloride 20 MEQ TAB PO SCH (07:30)
[2018-03-22 07:39] LABS: Hemoglobin 8.8 g/dL (12.0-16.0); Mean Corpuscular HGB CONC 32.5 g/dL (32.0-36.0); Mean Corpuscular Volume 92.4 fL (78.0-98.0); Mean Platelet Volume 6.9 fL (7.4-10.4); Platelet Count 107 thou/uL (130-400); RBC Distribution Width 14.8 % (11.5-14.5); Red Blood Cell (RBC) Count 2.94 mill/uL (4.20-5.40); White Blood Cell (WBC) Count 36.5 thou/uL (4.8-10.8)
[2018-03-22 07:54] LABS: Band 7 % (5-11); Differential Comment Immature Cell(s); Lymphocytes 65 % (21-51); MDiff Complete? YES; Metamyelocyte 1 % (0-0); Monocytes 3 % (0-10); Neutrophil 16 % (42-75); Ovalocytes SLIGHT = 2-5 cells (100X) (0-1/hpf); PLT Morphology Comment Appears Decreased; Polychromasia SLIGHT = 2-3 cells (100X) (0-2/hpf)
[2018-03-22] MEDS: Levothyroxine Sodium 100 MCG TAB PO SCH (09:10)
[2018-03-22] MEDS: Cefepime 1 GM in Sodium Chloride 0.9% 100 ML IVPB SCH ×2 (09:12→20:09)
--- NOTE | 2018-03-22 09:37 | PDOC.PN ---
- Subjective Encounter Start Date: 03/22/18 Encounter Start Time: 09:36 Feels well. Challenged by having to be in the hospital, but ambulating well. Voided well with diuretics. Legs are "softer" today. Prefers not to have anymore diuretics today if we can avoid it. - Objective Vital Signs & Weight: Vital Signs (12 hours) Temp Pulse Resp BP BP Pulse Ox 03/22/18 07:55 98.0 F 93 20 163/76 H 92 L 03/22/18 05:51 98.4 F 102 H 20 157/72 H 93 L Weight Weight 143 lb 9 oz Result Diagrams: 03/22/18 06:12 03/22/18 06:12 Phys Exam - Physical Examination Constitutional: NAD Respiratory: no wheezing, no rales, no rhonchi, clear to auscultation bilateral Cardiovascular: RRR, no significant murmur, no rub Gastrointestinal: soft, non-tender, no distention, positive bowel sounds LLE wrapped. RLE with 2+ pitting edema. Neurological: non-focal Psychiatric: normal affect, A&O x 3 Deviation from normal: Right sacral skin wound covered. No evidence of drainage. 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 * The BMBx site does not appear to have continued drainage to any significant degree. * Continue abx and await culture results at 48 hours. Cannot trust leukocytosis to help in the dx of any infection nor can we rely on the immune system. * Will hold off on any further diuresis for now per patient request. Does not look like it is overwhelming edema at this point. * Replace potassium.
[2018-03-22] MEDS: Vancomycin HCl 1 GM in Premix Bag 1 BAG IVPB SCH (10:19)
[2018-03-22] MEDS: diphenhydrAMINE 25 MG CAP PO PRN (20:09)
[2018-03-23] MEDS: Sodium Chloride 0.9% 1,000 ML IV SCH ×2 (01:18→08:16)
[2018-03-23 07:41] LABS: ALT (SGPT) 28 U/L (8-55); AST (SGOT) 46 U/L (5-34); Albumin 2.5 g/dL (3.4-4.8); Alkaline Phosphatase 104 U/L (40-150); Anion Gap 11 mmol/L (10-20); BUN (Urea Nitrogen) 7 mg/dL (9.8-20.1); Bilirubin, Total 1.4 mg/dL (0.2-1.2); Calc. Creatinine Clearance 67 mL/min (70-130); Calcium 7.6 mg/dL (7.8-10.44); Carbon Dioxide 32 mmol/L (23-31); Chloride 100 mmol/L (98-107); Estimated GFR-MDRD Greater than 90; Globulin 2.8 g/dL (2.4-3.5); Glucose 90 mg/dL (83-110); Potassium 3.5 mmol/L (3.5-5.1); Protein, Total 5.3 g/dL (6.0-8.3); Sodium 139 mmol/L (136-145)
[2018-03-23] MEDS: Levothyroxine Sodium 100 MCG TAB PO SCH (08:10)
[2018-03-23] MEDS: Vancomycin HCl 1 GM in Premix Bag 1 BAG IVPB SCH (08:16)
[2018-03-23 08:24] LABS: Band 19 % (5-11); Eosinophils 1 % (0-10); Hemoglobin 8.1 g/dL (12.0-16.0); Lymphocytes 43 % (21-51); MDiff Complete? YES; Mean Corpuscular HGB CONC 31.9 g/dL (32.0-36.0); Mean Corpuscular Hemoglobin 29.5 pg (27.0-31.0); Mean Corpuscular Volume 92.4 fL (78.0-98.0); Mean Platelet Volume 7.1 fL (7.4-10.4); Metamyelocyte 6 % (0-0); Monocytes 7 % (0-10); Myelocyte 1 % (0-0); Neutrophil 23 % (42-75); Nucleated RBC 2 % (0); PLT Morphology Comment Appears Decreased; Platelet Count 115 thou/uL (130-400); RBC Distribution Width 15.2 % (11.5-14.5); Red Blood Cell (RBC) Count 2.76 mill/uL (4.20-5.40); White Blood Cell (WBC) Count 33.9 thou/uL (4.8-10.8)
[2018-03-23] MEDS: Cefepime 1 GM in Sodium Chloride 0.9% 100 ML IVPB SCH (09:45)
--- NOTE | 2018-03-23 09:59 | RAD ---
PA AND LATERAL VIEWS OF CHEST: Date: 03/23/18 HISTORY: Pleural effusions. FINDINGS: The heart size is borderline. Bilateral small pleural effusions are seen. No pneumothoraces are ident ified. IMPRESSION: Bilateral pleural effusions. POS: [facility]
--- NOTE | 2018-03-23 12:20 | PDOC.PN ---
- Subjective Encounter Start Date: 03/23/18 Encounter Start Time: 08:50 Frustrated to have to be here and know that things are not ok. - Objective Vital Signs & Weight: Vital Signs (12 hours) Temp Pulse Resp BP Pulse Ox 03/23/18 08:11 97.8 F 105 H 16 164/75 H 93 L 03/23/18 04:07 160/73 H 03/23/18 03:59 98.0 F 102 H 16 173/80 H 91 L Weight Weight 143 lb 9 oz I&O: 03/22/18 03/23/18 03/24/18 06:59 06:59 06:59 Intake Total 360 Balance 360 Result Diagrams: 03/23/18 05:54 03/23/18 05:54 Radiology Reviewed by me: Yes Phys Exam - Physical Examination Constitutional: NAD Respiratory: no wheezing, no rales, no rhonchi, clear to auscultation bilateral Cardiovascular: RRR, no rub Tachy, II/ murmur Ao and Mitral distribution. Gastrointestinal: soft, non-tender Slightly distended. 2+ edema RLE and LLE wrapped. Psychiatric: normal affect, A&O x 3 Dx/Plan (1) Draining postoperative wound Code(s): T81.89XA - OTH COMPLICATIONS OF PROCEDURES, NEC, INIT Status: Acute Comment: Bone marrow biopsy site. Appears benign and not infected. (2) Lymphoproliferative disorder Code(s): D47.9 - NEOPLM OF [facility] OF LYMPHOID,HEMATPOETC & REL TISS,UNSP Status: Acute (3) Edema extremities Code(s): R60.0 - LOCALIZED EDEMA Status: Acute (4) Hypokalemia Code(s): E87.6 - HYPOKALEMIA Status: Acute (5) Hypothyroidism Code(s): E03.9 - HYPOTHYROIDISM, UNSPECIFIED Status: Acute Comment: continue synthroid. Reports she has recently had this checked and it was ok. (6) Tachycardia Code(s): R00.0 - TACHYCARDIA, UNSPECIFIED Status: Acute (7) Heart murmur Code(s): R01.1 - CARDIAC MURMUR, UNSPECIFIED Status: Acute Comment: Reports hx of valve problem. No echo found in record. - Plan * Has large pleural effusions on initial CT abd. Has significant peripheral edema and now some abdominal fluid. Unclear why she is retaining so much fluid. Persistently, mildly tachycardic. Has history of some heart valve problem. * CXR * ECHO * On vanc and cefepime, but cultures negative thus far. 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 * Looks great overall. Await echo findings. Could discharge for outpatient follow if ok.
[2018-03-23 13:29] VITALS: BP 174/104; TEMP 98.5
--- NOTE | 2018-03-24 00:59 | DIS ---
DATE OF ADMISSION: 03/21/2018 DATE OF DISCHARGE: 03/23/2018 DISCHARGE DIAGNOSES: 1. Draining postsurgical wound, noninfected. 2. Lymphoproliferative disorder, still being evaluated. 3. Generalized edema. 4. Hypokalemia. 5. Hypothyroidism. 6. Tachycardia. 7. Heart murmur. HISTORY OF PRESENT ILLNESS: This patient is an 87-year-old female who has recently been found to have myeloproliferative disorder, who is undergoing evaluation, that evaluation included a bone marrow biopsy. The patient did well with the bone marrow biopsy that subsequently started having some clear fluid drainage from the biopsy site. She had no pain or redness associated with this area, but because of her concern for lack of immuno competency, she presented to the emergency department where she underwent CT scan of the lumbar area, which showed no evidence of soft tissue infection. The patient was admitted to the hospital and started on antibiotics. She had this fluid cultured. She remained afebrile. Her vital signs were, otherwise, normal. The drainage seemed to resolve fairly quickly with the dressing. The patient did note some additional peripheral edema primarily in her lower extremities. However, her initial CT scan of the abdomen and pelvis revealed pleural effusions and the patient reported some abdominal fluid and distention. She initially received a dose of diuretic, which was fairly effective, but the patient did not tolerate tremendously well and requested not to have more at the moment. She was felt to be stable, her cultures were negative, and her vital signs were normal. Her drainage has essentially stopped. However, attempted to pursue workup for her generalized edema and low-grade tachycardia. The patient had a followup chest x-ray, which revealed the effusions were not as big as 1st thought in the CT scans. The patient was asymptomatic. She was saturating well and able to get up and ambulate without much difficulty. She recently had her thyroid evaluated as well. The patient was very eager to discharge. I spoke with the Mitzi Vogel, who felt comfortable that they could follow the patient up very quickly as an outpatient and given her lack of symptoms, I felt this was reasonable. She did have an echocardiogram that was obtained, has not been read at the time of discharge, but Mitzi can follow that up as well. PHYSICAL EXAMINATION: Please see the note dated earlier the same day of the discharge. DISPOSITION: The patient is discharged to home. ACTIVITY: Her activity is as tolerated. DIET: She will be on a regular diet. MEDICATIONS: She will be on, 1. Levothyroxine 100 mcg daily. 2. Diphenhydramine p.r.n. 3. Can resume Levaquin that she had previously prescribed. FOLLOWUP: She is to follow up with Mitzi Vogel NP in the Oncology [facility] in the next few days and Dr. Sands in the next week or so as well. She can return to the hospital should she have any problems prior to her followup. Mitzi will follow up on the patient's echocardiogram. I suspect the patient will benefit from a beta ashley once we know the outcome of the echocardiogram. Job ID: [id number]
== END 2018-03-23 16:23 | disposition home or self-care (01) | DRG 923 ==
LOC: ERS 17:04 → T4-A 20:16 → OBSVTOIN 03-21 09:29
PROVIDERS: ADMIT Internal Medicine; ATTEND Internal Medicine
PROC: B24BZZZ Ultrasonography of Heart with Aorta (ICD-10-PCS; principal; 2018-03-23)
DX: T78.8XXA Other adverse effects, not elsewhere classified, initial encounter (principal); D47.9 Neoplasm of uncertain behavior of lymphoid, hematopoietic and related tissue, unspecified; J90 Pleural effusion, not elsewhere classified; R60.1 Generalized edema; E87.6 Hypokalemia; E03.9 Hypothyroidism, unspecified; R00.0 Tachycardia, unspecified; R01.1 Cardiac murmur, unspecified; Y84.8 Other medical procedures as the cause of abnormal reaction of the patient, or of later complication, without mention of misadventure at the time of the procedure; Y82.8 Other medical devices associated with adverse incidents; Z85.43 Personal history of malignant neoplasm of ovary; Z85.51 Personal history of malignant neoplasm of bladder; Z90.49 Acquired absence of other specified parts of digestive tract; Z79.890 Hormone replacement therapy; Z79.2 Long term (current) use of antibiotics; D72.829 Elevated white blood cell count, unspecified; E87.79 Other fluid overload; Z86.19 Personal history of other infectious and parasitic diseases
CPT/HCPCS: 36415; 71046; 74177; 80048; 80053; 81003; 81015; 85025; 85060; 87040; 87070; 87077; 87086; 87205; 93306; J0692; J3370; J7050

== ENCOUNTER 2018-04-07 17:32 | Day surgery (SDC) | payer MEDICARE ==
[2018-04-07 13:29] VITALS: BMI 20.3
[2018-04-07] MEDS ORDERED: diphenhydrAMINE 25 MG CAP PO SCH (19:00)
[2018-04-07] MEDS ORDERED: Furosemide 20 MG/2 ML VIAL SLOW IVP SCH (19:00)
[2018-04-07] MEDS ORDERED: Acetaminophen 500 MG TAB PO SCH (19:00)
[2018-04-08 08:05] VITALS: BP 145/70; TEMP 98
[2018-04-08 08:12] LABS: Hemoglobin 9.2 g/dL (12.0-16.0); Mean Corpuscular HGB CONC 31.6 g/dL (32.0-36.0); Mean Corpuscular Hemoglobin 30.5 pg (27.0-31.0); Mean Corpuscular Volume 96.3 fL (78.0-98.0); Mean Platelet Volume 7.7 fL (7.4-10.4); Platelet Count 77 thou/uL (130-400); RBC Distribution Width 18.5 % (11.5-14.5); White Blood Cell (WBC) Count 10.2 thou/uL (4.8-10.8)
[2018-04-08 08:52] LABS: Band 20 % (5-11); Eosinophils 2 % (0-10); Hypochromia SLIGHT = 6-15 cells (100X) (0-5/hpf); Lymphocytes 25 % (21-51); MDiff Complete? YES; Metamyelocyte 2 % (0-0); Monocytes 2 % (0-10); Myelocyte 1 % (0-0); Neutrophil 41 % (42-75); Platelet Morphology Comment Appears Decreased; Polychromasia MODERATE = 3-4 cells (100X) (0-2/hpf); Reactive Lymphocytes 7 % (0-10)
[2018-04-08] MEDS ORDERED: PROPOFOL 200 MG/20 ML VIAL ONE (14:35)
--- NOTE | 2018-04-08 15:09 | RAD ---
CHEST ONE VIEW: INDICATIONS: History of Mediport placement. COMPARISON: 03/23/2018 FINDINGS: There is a right IJ chest wall port in place. The catheter projects to the region of the SVC. Cardi omegaly and bilateral pleural effusions persist. Bibasilar atelectasis is similar appearing. No pne umothorax is demonstrated. The osseous structures are unchanged. IMPRESSION: Interval placement of right chest wall Mediport. No pneumothorax demonstrated. POS: [facility]
--- NOTE | 2018-04-09 15:52 | OP ---
DATE OF PROCEDURE: 04/08/2018 PREOPERATIVE DIAGNOSIS: Lymphoma. POSTOPERATIVE DIAGNOSIS: Lymphoma. PROCEDURE: Tunnelled central line with subcutaneous port (MediPort CT injectable). ANESTHESIA: TIVA, local. ESTIMATED BLOOD LOSS: Minimal. COMPLICATIONS: None. SPECIMENS: None. FINDINGS: Tip of the catheter was at the atriocaval junction. DESCRIPTION OF PROCEDURE: The patient was taken to the operating room and laid supine on the operating room table. After sedation was obtained, bilateral neck and chest were prepped and draped in a sterile fashion. Local anesthetic was infiltrated over the right internal jugular vein. Internal jugular vein was cannulated using a 22-gauge finder needle followed by a Seldinger needle. Wire was passed into the superior vena cava under fluoro guidance. A small hussain was made at the wire entrance site. A separate 3-cm incision was made in the right upper chest. Tubing for the MediPort tunneled from the inferior to the superior incision and suture sheath was placed over the wire into the superior vena cava under fluoro guidance. The tubing was threaded into the sheath and the sheath was peeled away. The tip of the catheter was at the atriocaval junction. MediPort tubing cut to fit the MediPort at the lower incision, connected to the MediPort. The MediPort sewn to the chest wall in a subcutaneous pocket using Prolene. The MediPort flushes and draws blood without difficulty. It was flushed with a heparin flush. All incisions were irrigated and closed using 3-0 Vicryl, 4-0 Monocryl, and Dermabond. The patient was sent to Recovery in stable condition. All instrument counts, needle counts, and lap counts were correct. Job ID: [id number]
== END 2018-04-08 09:39 | disposition admitted as inpatient to this hospital (09) ==
LOC: ONC/OP 17:32 → ONC 17:32 → ONC/OP 04-08 09:39
PROVIDERS: ATTEND Surgery
PROC: 02HV33Z Insertion of Infusion Device into Superior Vena Cava, Percutaneous Approach (ICD-10-PCS; principal; 2018-04-07)
DX: C91.10 Chronic lymphocytic leukemia of B-cell type not having achieved remission (principal); E07.9 Disorder of thyroid, unspecified; Z85.51 Personal history of malignant neoplasm of bladder; Z85.43 Personal history of malignant neoplasm of ovary; Z79.52 Long term (current) use of systemic steroids; Z79.899 Other long term (current) drug therapy; Z98.890 Other specified postprocedural states
CPT/HCPCS: 36415; 36430; 71045; 85025; 86850; 86900; 86901; 99203; C1788; G0463; J1940; J2704; P9016; P9035

== ENCOUNTER 2018-05-03 10:35 | Emergency (ER) | payer MEDICARE ==
--- NOTE | 2018-05-03 11:49 | RAD ---
THREE VIEWS RIGHT HAND: Date: 05-03-18 Comparison: None. History: Fall, trauma, pain. FINDINGS: There is positive ulnar variance. There is radiocarpal joint space narrowing. There is irregularity i nvolving the cortical margin of the distal radius laterally, suggesting an old radial fracture. There is degenerative change at the first carpal metacarpal joint. There is degenerative change at the fir st and second metacarpal phalangeal joints. The bones appear demineralized with no displaced fracture or evidence of dislocation seen. The lateral examination suggests a soft tissue injury along the olivia silva aspect of the hand overlying the region of the metacarpals. IMPRESSION: Probable soft tissue injury involving the dorsal aspect of the hand. No displaced fracture or disloca tion seen. POS: [facility]
[2018-05-03 13:20] LABS: ALT (SGPT) 8 U/L (8-55); AST (SGOT) 17 U/L (5-34); Albumin 2.4 g/dL (3.4-4.8); Alkaline Phosphatase 93 U/L (40-150); Anion Gap 15 mmol/L (10-20); BUN (Urea Nitrogen) 23 mg/dL (9.8-20.1); Bilirubin, Total 2.7 mg/dL (0.2-1.2); Calc. Creatinine Clearance 0 mL/min (70-130); Calcium 7.8 mg/dL (7.8-10.44); Carbon Dioxide 25 mmol/L (23-31); Chloride 104 mmol/L (98-107); Estimated GFR-MDRD 59; Globulin 2.9 g/dL (2.4-3.5); Glucose 111 mg/dL (83-110); Potassium 4.5 mmol/L (3.5-5.1); Protein, Total 5.3 g/dL (6.0-8.3); Sodium 139 mmol/L (136-145)
[2018-05-03 13:34] LABS: Hemoglobin 6.8 g/dL (12.0-16.0); Mean Corpuscular HGB CONC 29.3 g/dL (32.0-36.0); Mean Corpuscular Hemoglobin 30.5 pg (27.0-31.0); Mean Platelet Volume 6.9 fL (7.4-10.4); Platelet Count 46 thou/uL (130-400); RBC Distribution Width 18.7 % (11.5-14.5); Red Blood Cell (RBC) Count 2.24 mill/uL (4.20-5.40)
[2018-05-03 13:37] LABS: Band 9 % (5-11); Lymphocytes 70 % (21-51); MDiff Complete? YES; Macrocytosis SLIGHT = 6-15 cells (100X) (0-5/hpf); Metamyelocyte 4 % (0-0); Monocytes 4 % (0-10); Neutrophil 13 % (42-75); Nucleated RBC 5 % (0); Platelet Morphology Comment Appears Decreased; Polychromasia SLIGHT = 2-3 cells (100X) (0-2/hpf)
[2018-05-03] MEDS ORDERED: Adacel (T-DAP) 0.5 ML SYRINGE ONE (13:49)
== END 2018-05-03 14:57 | disposition home or self-care (01) ==
LOC: ERS 10:35
DX: S61.411A Laceration without foreign body of right hand, initial encounter (principal); D64.9 Anemia, unspecified; E03.9 Hypothyroidism, unspecified; Z79.899 Other long term (current) drug therapy; W01.0XXA Fall on same level from slipping, tripping and stumbling without subsequent striking against object, initial encounter
CPT/HCPCS: 36415; 80053; 85025; 90471; 90715